=== PATIENT | female | born 1940 | race Caucasian/White ===

== ENCOUNTER → 2017-03-22 | Outpatient (CLI) | payer MEDICARE, BC ==
[2017-03-22 14:50] LABS: BASO # 0.1 x10^3/uL (0.0-0.2); BASO % 1 % (0-3); EOS # 0.2 x10^3/uL (0.0-0.7); EOS % 3 % (0-3); HEMATOCRIT 24.6 % (36.0-47.0); HEMOGLOBIN 7.7 g/dL (12.0-15.5); LYMPH # 1.5 x10^3/uL (1.0-4.8); LYMPH % 20 % (24-48); MEAN CORPUSCULAR HEMOGLOBIN 25 pg (25-35); MEAN CORPUSCULAR HGB CONC 31 g/dL (31-37); MEAN CORPUSCULAR VOLUME 78 fL (79-100); MONO # 0.8 x10^3/uL (0.0-1.1); MONO % 10 % (0-9); NEUT # 4.9 x10^3uL (1.8-7.7); NEUT % 66 % (31-73); PLATELET COUNT 396 x10^3/uL (140-400); RED BLOOD COUNT 3.16 x10^6/uL (3.50-5.40); RED CELL DISTRIBUTION WIDTH 15.5 % (11.5-14.5); WHITE BLOOD COUNT 7.5 x10^3/uL (4.0-11.0)
[2017-03-22 15:07] LABS: ALBUMIN 3.4 g/dL (3.4-5.0); ALBUMIN/GLOBULIN RATIO 0.9 (1.0-1.7); CALCIUM 9.3 mg/dL (8.5-10.1); CREATININE 1.1 mg/dL (0.6-1.0); POTASSIUM 3.9 mmol/L (3.5-5.1); TOTAL BILIRUBIN 0.2 mg/dL (0.2-1.0)
== END | disposition home or self-care (01) ==
LOC: LAB 14:01
PROVIDERS: ATTEND Family Medicine
DX: I50.21 Acute systolic (congestive) heart failure (principal); R06.09 Other forms of dyspnea
CPT/HCPCS: 36415; 80053; 82553; 83880; 84484; 85027; 85379

== ENCOUNTER 2019-10-18 09:08 | Inpatient (IN) | payer MEDICARE, BC ==
[~2019-10-18] VITALS: Ht 167.6 cm; Wt 88.5 kg
[2019-10-18 09:47] VITALS: BP 149/78
[2019-10-18 09:57] LABS: BASO % 0 % (0-3); EOS % 1 % (0-3); HEMATOCRIT 43.4 % (36.0-47.0); HEMOGLOBIN 14.5 g/dL (12.0-15.5); LYMPH # 0.9 x10^3/uL (1.0-4.8); LYMPH % 18 % (24-48); MEAN CORPUSCULAR HEMOGLOBIN 33 pg (25-35); MEAN CORPUSCULAR HGB CONC 33 g/dL (31-37); MEAN CORPUSCULAR VOLUME 98 fL (79-100); MONO # 0.5 x10^3/uL (0.0-1.1); MONO % 8 % (0-9); NEUT % 73 % (31-73); PLATELET COUNT 247 x10^3/uL (140-400); RED BLOOD COUNT 4.44 x10^6/uL (3.50-5.40); RED CELL DISTRIBUTION WIDTH 12.7 % (11.5-14.5); WHITE BLOOD COUNT 5.4 x10^3/uL (4.0-11.0)
[2019-10-18 10:07] LABS: ALBUMIN 3.3 g/dL (3.4-5.0); ALBUMIN/GLOBULIN RATIO 0.9 (1.0-1.7); CALCIUM 8.7 mg/dL (8.5-10.1); CREATININE 0.9 mg/dL (0.6-1.0); GFR 60.1; POTASSIUM 3.5 mmol/L (3.5-5.1); TOTAL BILIRUBIN 0.6 mg/dL (0.2-1.0); TOTAL PROTEIN 6.9 g/dL (6.4-8.2)
--- NOTE | 2019-10-18 10:37 | NUR ---
Pt arrived from Dr. Maradiaga's office via wheelchair for freqent falls, pt admitted to 1 [facility] room 109. Pt family at bedside, vital signs stable upon arrival. Non-skid socks applied, bed in lowest position, pt oriented to floor, walker provided for ambulation. Willl continue to assess and perform 's orders as prescribed. Pt currently off floor for spinal CT Scan.
[2019-10-18] MEDS ORDERED: fentaNYL 12MCG/HR 1 PATCH PATCH TD SCH (11:30)
[2019-10-18] MEDS ORDERED: LIDO700A21 TP (12:15)
[2019-10-18] MEDS ORDERED: MAGN400O7 PO (12:15)
[2019-10-18] MEDS ORDERED: LOPE2TAB27 PO (12:15)
[2019-10-18] MEDS ORDERED: ANAS1TAB47 PO (12:15)
[2019-10-18] MEDS ORDERED: LORA10CA PO (12:15)
[2019-10-18] MEDS ORDERED: CALC1TAB21 PO (12:15)
[2019-10-18] MEDS ORDERED: DEXT118L3 PO (12:15)
[2019-10-18] MEDS ORDERED: ACET500T68 PO (12:15)
[2019-10-18] MEDS ORDERED: OMEP20CA16 PO (12:15)
[2019-10-18] MEDS ORDERED: MEMA10TA PO (12:15)
[2019-10-18] MEDS ORDERED: GUAI-305 PO (12:15)
[2019-10-18] MEDS ORDERED: PROM5SYR2 PO (12:15)
[2019-10-18] MEDS ORDERED: METO25TA4 PO (12:15)
[2019-10-18] MEDS ORDERED: FURO40TA4 PO (12:15)
[2019-10-18] MEDS ORDERED: AMLO5TAB4 PO (12:15)
[2019-10-18] MEDS ORDERED: LORA-254 PO (12:15)
[2019-10-18] MEDS ORDERED: IRON1TAB29 PO (12:15)
[2019-10-18] MEDS ORDERED: ACETAMINOPHEN 500 MG TABLET PO PRN (13:45)
[2019-10-18 14:07] VITALS: BP 126/73
--- NOTE | 2019-10-18 14:43 | RAD ---
Two-view right foot study Clinical indications: Right foot pain FINDINGS: No acute fracture or dislocation or lytic process is evident. Old healed fracture of the midshaft of the second metatarsal bone is seen. Moderate-sized plantar spur of the calcaneus is seen. IMPRESSION: No acute fracture. Electronically signed by: Guido Sanders MD (10/18/2019 2:40 PM) [facility]
[2019-10-18] MEDS ORDERED: CONTRAST GIVEN MC PRN (15:00)
[2019-10-18] MEDS ORDERED: IOHEXOL 350 MG/ML 100 ML VIAL. IV ONE (15:00)
--- NOTE | 2019-10-18 15:05 | RAD ---
CT study of the lumbar spine without contrast Clinical indications: Severe intractable back pain. TECHNIQUE: Noncontrast helical CT scanning of the lumbar spine was performed. Multiplanar 2-D reconstructions were generated. PQRS compliance Statement One or more of the following individualized dose reduction techniques were utilized for this study: 1. Automated exposure control 2. Adjustment of the mA and/or kV according to patient size 3. Use of iterative reconstruction technique COMPARISON: Radiographic study lumbar spine dated July 24, 2007. FINDINGS: There is a severe compression fracture of L1. There is cortical disruption of the anterior aspect of the superior and inferior endplates and therefore this may be recent. This was not seen radiographically on the previous study. There is posterior protrusion of bony elements into the anterior spinal canal from the posterior superior aspect of the L1 vertebral body. This narrows the AP dimension of the spinal canal within the midline down to 10 mm. This is more prominent on the right side of the spinal canal. No lytic process or discitis is evident. Dextroscoliosis of is seen. The transverse processes are intact. 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 This entire process combining the Tarlov cyst with the dural ectasia measures 5.9 cm transversely and 3.6 cm in AP dimension and 6.5 cm in vertical dimension. There is a grade 1 anterolisthesis of L4-5 and L5-S1. No spondylolysis is seen. There is [id number] spinal canal stenosis at L1-2 and L2-3 and L3-4. There is moderate spinal canal stenosis at L4-5. There is neural foraminal narrowing at L3-4 bilaterally and at L4-5 on the right side. IMPRESSION: Severe compression fracture of L1 which may be recent. See discussion above for additional findings. Electronically signed by: Guido Sanders MD (10/18/2019 3:02 PM) [facility]
--- NOTE | 2019-10-18 16:10 | RAD ---
CT ANGIOGRAPHY CHEST History: Severe back pain. Syncope. Elevated d-dimer. Technique: CT of the chest was performed with contrast. PE protocol. Maximum intensity projection coronal and sagittal reconstructions were performed. Exposure: One or more of the following individualized dose reduction techniques were utilized for this examination: 1. Automated exposure control 2. Adjustment of the mA and/or kV according to patient size 3. Use of iterative reconstruction technique. Comparison: CT lumbar spine October 18, 2019. Findings: Chest: No evidence of pulmonary embolism. No evidence aortic aneurysm or dissection. Coronary artery calcification. No consolidation or pleural effusion. Right posterior lower lobe pleural nodules (image #43) measure 5 mm. 2 mm right upper lobe pulmonary nodule along the fissure (image 22). Right upper lobe anterior calcified granuloma. Left mid thyroid nodule measures 9 mm. Upper abdomen: Large hiatal hernia. Small left superior hepatic lobe hypodensity measures 5 mm (series 3 image #78), too small to further characterize. Bones: Chronic left posterior and anterior rib fractures. T10 and T11 compression fractures with vertebroplasty material. L1 severe compression fracture with mild retropulsion. Impression: 1. No evidence of pulmonary embolism. 2. L1 compression fracture. See dedicated CT lumbar spine for further details. 3. Large hiatal hernia. 4. Pulmonary nodules. Recommend comparison with prior imaging studies. If prior imaging studies are not available recommend one-year follow-up if high risk. 5. Left thyroid nodule. Electronically signed by: Nishant Roche DO (10/18/2019 4:07 PM) [facility]
[2019-10-18 19:15] VITALS: BP 116/75
[2019-10-18] MEDS ORDERED: LORA0.5T96 PO (21:05)
[2019-10-18] MEDS ORDERED: MULT-658 PO (21:32)
[2019-10-18] MEDS ORDERED: GUAI-447 PO (21:32)
[2019-10-18] MEDS ORDERED: ESOM20CA PO (21:32)
--- NOTE | 2019-10-18 22:00 | NUR ---
PT'S RESHMA PROVIDED MOST CURRENT HOME MED LIST, COPY PLACED IN CHART AND MEDS UPDATED IN EMAR.
[2019-10-18] MEDS: ACETAMINOPHEN 500 MG TABLET PO SCH (22:26)
[2019-10-18] MEDS: METOPROLOL TART IMMED RELEASE 25 MG TABLET PO SCH (22:27)
[2019-10-18 22:57] VITALS: BP 154/81
[2019-10-18] MEDS: traMADol 50 MG TABLET PO PRN (23:39)
[2019-10-19] MEDS ORDERED: guaiFENesin DM 200MG/20MG 10 ML SYRUP PO PRN (01:30)
[2019-10-19] MEDS ORDERED: CETIRIZINE HCL 10 MG TABLET PO PRN (01:30)
[2019-10-19 05:17] VITALS: BP 157/77
[2019-10-19] MEDS ORDERED: ACETAMINOPHEN 500 MG TABLET PO SCH (06:00)
[2019-10-19] MEDS ORDERED: PANTOPRAZOLE 40 MG TABLET. PO SCH (07:30)
[2019-10-19] MEDS: ACETAMINOPHEN 500 MG TABLET PO SCH (08:45)
[2019-10-19] MEDS: METOPROLOL TART IMMED RELEASE 25 MG TABLET PO SCH (08:46)
[2019-10-19] MEDS ORDERED: LIDOCAINE (700MG/PATCH) PATCH. TP SCH (09:00)
[2019-10-19] MEDS ORDERED: METOPROLOL TART IMMED RELEASE 25 MG TABLET PO SCH (09:00)
[2019-10-19] MEDS ORDERED: MULTIVITAMIN with MINERAL TABLET. PO SCH (09:00)
[2019-10-19] MEDS ORDERED: FUROSEMIDE 40 MG TABLET PO SCH (09:00)
[2019-10-19] MEDS ORDERED: amLODIPine BESYLATE 5 MG TABLET PO SCH (09:00)
[2019-10-19] MEDS ORDERED: ANASTROZOLE 1 MG TABLET PO SCH (09:00)
[2019-10-19] MEDS ORDERED: MEMANTINE 10 MG TABLET. PO SCH (09:00)
--- NOTE | 2019-10-19 10:25 | NUR ---
Pt to be transferred to [facility] for compression fracture of L1 located in lumbar spine. RN educated pt about reasoning for transfer, at bedside. Will continue to monitor and assess as needed.
[2019-10-19 10:35] VITALS: BP 106/58
[2019-10-19] MEDS: traMADol 50 MG TABLET PO PRN (10:38)
[2019-10-19 10:50] VITALS: BP 106/58
--- NOTE | 2019-10-19 11:44 | NUR ---
Discharge Note: CHRIS VIGIL [facility] Discharge instructions and discharge home medications reviewed with Patient and a copy given. All questions have been answered and understanding verbalized. The following instructions and handouts were given: Report to [facility] Room 404 Discontinued lines and drains: IV left in for transfer to [facility] Patient transferred to [facility]]
[2019-10-19] MEDS ORDERED: PATCH REMOVAL. MC SCH (21:00)
--- NOTE | 2019-11-01 20:59 | DS ---
DATE OF DISCHARGE: 10/19/2019 HOSPITAL COURSE: An 79-year-old female who came in. The patient notes that the patient has been falling several times. The patient has been having problems with maintaining . The patient otherwise has been having severe back pain and had a problem with severe lumbar sacral problems. The patient in turn was in such excruciating amount of pain and as a result of this, the patient was admitted to the hospital for further evaluation. On exam, the patient was noted to have a problem with severe compression fracture of L1, probably recent. The patient has dementia, Alzheimer type, but certainly was able to dictate the fact of where her pain was located. The x-rays were as noted showing severe compression fracture. The patient's pain was 9/10 and as a result of this, the patient was thought favorable to be transferred down to [place] for possible vertebroplasty and make further evaluation. The patient otherwise was stabilized with pain medications. Her pain was a 9-10/10. She was unable to move because of the severity of the pain itself. The patient's lab work was basically unremarkable in terms of sodium, potassium, electrolytes. She had some mild protein malnutrition at best. In any case, the patient was transferred down to the [facility] for further evaluation of her situation with her vertebral compression fracture. IMPRESSION: Severe vertebral compression fracture of L1, multiple falls, dementia, Alzheimer type, moderate protein malnutrition, history of multiple falls at home, multiple contusions to her foot and other areas of her body. PLAN: The patient will be on regular diet and transferred via EMS down to the [facility]. MARJAN VARELA MD DR: NELLY/wanda JOB#: [id number] / [id number]
== END 2019-10-19 12:00 | disposition short-term general hospital (02) | DRG 543 ==
LOC: 1 SOUTH 09:08
PROVIDERS: ADMIT Family Medicine; ATTEND Family Medicine
DX: M80.88XA Other osteoporosis with current pathological fracture, vertebra(e), initial encounter for fracture (principal); E44.0 Moderate protein-calorie malnutrition; M51.26 Other intervertebral disc displacement, lumbar region; I10 Essential (primary) hypertension; K21.9 Gastro-esophageal reflux disease without esophagitis; Z85.3 Personal history of malignant neoplasm of breast; Z91.018 Allergy to other foods; Z88.8 Allergy status to other drugs, medicaments and biological substances; Z87.891 Personal history of nicotine dependence; Z98.42 Cataract extraction status, left eye; Z98.41 Cataract extraction status, right eye; Z83.3 Family history of diabetes mellitus; Z82.49 Family history of ischemic heart disease and other diseases of the circulatory system; G30.9 Alzheimer's disease, unspecified; F02.80 Dementia in other diseases classified elsewhere, unspecified severity, without behavioral disturbance, psychotic disturbance, mood disturbance, and anxiety; Z91.81 History of falling
CPT/HCPCS: 36415; 71275; 72131; 73620; 80053; 82306; 82947; 84443; 85025; 85379; Q9967

== ENCOUNTER 2021-06-28 11:23 | Inpatient (IN) | payer MEDICARE, BC ==
[~2021-06-28] VITALS: Ht 167.6 cm; Wt 93.0 kg
[~2021-06-28 11:23] MED LIST: ACET500T68 PO; AMLO5TAB4 PO; ANAS1TAB47 PO; CALC1TAB21 PO; DEXT118L3 PO; ESOM20CA PO; FURO40TA4 PO; GUAI-305 PO; GUAI-447 PO; IRON1TAB29 PO; LIDO700A21 TP; LOPE2TAB27 PO; LORA-254 PO; LORA0.5T21 PO; LORA10CA PO; MAGN400O7 PO; MEMA10TA PO; METO25TA4 PO; MULT-658 PO; OMEP20CA16 PO; PROM5SYR2 PO
--- NOTE | 2021-06-28 11:37 | PHYS DOC ---
General Adult EDM: Chief Complaint: ALTERED MENTAL STATUS HPI: HPI: Patient is a 80-year-old female brought in by EMS from home. Patient has a history of Alzheimer's dementia and history mostly provided by patient's . He states that she usually is able to ambulate and speak with him although she is confused. This morning he states he was going to get the medications ready when she called him into the room and said that she felt "dizzy" and was dry heaving. Patient has been gave her a dose of Zofran which improved her symptoms. He called their primary care provider who had told him to come into the office, patient's states he was unable to get her up to walk because of her weakness. Has had both of her [place] Covid vaccines. No history of any lung problems, oxygen requirements, or sleep apnea. Patient has been states that she had a slight cough yesterday that resolved with Mucinex. Review of Systems: Review of Systems: All other systems within normal limits except for as noted in the HPI Allergies: Allergies: Allergies Coded Allergies Type Severity Reaction Last Updated Verified No Known Drug Allergies 10/18/19 No Physical Exam: PE: Constitutional: Well developed, well nourished, no acute distress, non-toxic appearance. [] HENT: Normocephalic, atraumatic, bilateral external ears normal, nose normal. [] Eyes: PERRLA, conjunctiva normal, no discharge. [] Neck: No rigidity, supple, no stridor. [] Cardiovascular: Regular rate and rhythm, brisk cap refill [] Lungs & Thorax: Non labored symmetric respirations, no tachypnea or respiratory distress [] Abdomen: Soft, nondistended. Skin: Warm, dry, no erythema, no rash. [] Back: Unremarkable Extremities: No deformities, range of motion grossly intact, no lower extremity edema [] Neurologic: Alert and oriented X 2, no focal deficits noted. [] Psychologic: Affect normal, judgement normal, mood normal. [] EKG: EKG: [] Radiology/Procedures: Radiology/Procedures: [address] [address] IMAGING REPORT Signed PATIENT: CHRIS VIGIL EACCOUNT: [id number] : 1940 LOCATION: ER AGE: 80 SEX: F EXAM STATUS: REG ER ORD. PHYSICIAN: FERNANDO ABERNATHY MD REASON: hypoxic PROCEDURE: CHEST AP ONLY EXAM: CHEST ONE VIEW. HISTORY: Hypoxia. COMPARISON: 10/18/2019. FINDINGS: A frontal view of the chest is obtained. There are minimal airspace opacities in both bases. There is a large hiatal hernia. There is no pneumothorax or pleural effusion. The heart is not enlarged. Vertebroplasty changes are noted at the thoracolumbar junction. There are atherosclerotic calcifications of the aorta. Calcified mediastinal lymph nodes are likely secondary to old granulomatous disease. IMPRESSION: 1. Mild bibasilar airspace opacities. Correlate for atypical pneumonia. 2. Large hiatal hernia. Electronically signed by: Adilene Berry MD (06/28/2021 11:49 AM) [id number] DICTATED AND SIGNED BY: ZAHRAA BERRY MD DATE: 06/28/21 1148 CC: FERNANDO ABERNATHY MD; MARJAN VARELA MD ~MTH0 0 [] Heart Score: C/O Chest Pain: No HEART Score for Chest Pain: HEART Score for Chest Pain Response (Comments) Value History Slighlty/Non-Suspicious 0 ECG Normal 0 Age > 65 2 Risk Factors 1 or 2 Risk Factors 1 Troponin < Normal Limit 0 Total 3 Risk Factors: Risk Factors: DM, Current or recent (<one month) smoker, HTN, HLP, family history of CAD, obesity. Risk Scores: Score 0 - 3: 2.5% MACE over next 6 weeks - Discharge Home Score 4 - 6: 20.3% MACE over next 6 weeks - Admit for Clinical Observation Score 7 - 10: 72.7% MACE over next 6 weeks - Early Invasive Strategies Course & Med Decision Making: Course & Med Decision Making Pertinent Labs and Imaging studies reviewed. (See chart for details) [] Dragon Disclaimer: Dragon Disclaimer: This electronic medical record was generated, in whole or in part, using a voice recognition dictation system. Departure Departure: Impression: Primary Impression: Pneumonia Disposition: ADMITTED INPATIENT Admitting Physician: Marjan Varela Condition: STABLE Referrals: MARJAN VARELA MD (PCP) FERNANDO ABERNATHY MD Jun 28, 2021 11:37
--- NOTE | 2021-06-28 11:41 | EKG ---
[address] [address] Test Date: 2021-06-28 Test Time: 11:25:32 Pat Name: CHRIS VIGIL Department: Room: Gender: F Value Advisor: EDWIN : 1940 Requested By: FERNANDO ABERNATHY Order Number: [id number] Reading MD: Measurements Intervals [place] Rate: 61 P: 23 SD: 204 QRS: 64 QRSD: 90 T: 53 QT: 422 QTc: 426 Interpretive Statements SINUS RHYTHM QRS(T) CONTOUR ABNORMALITY CONSIDER ANTEROSEPTAL MYOCARDIAL DAMAGE POSSIBLY ABNORMAL ECG RI6.02 No previous ECG available for comparison
--- NOTE | 2021-06-28 11:52 | RAD ---
EXAM: CHEST ONE VIEW. HISTORY: Hypoxia. COMPARISON: 10/18/2019. FINDINGS: A frontal view of the chest is obtained. There are minimal airspace opacities in both bases. There is a large hiatal hernia. There is no pneum othorax or pleural effusion. The heart is not enlarged. Vertebroplasty changes are noted at the thora columbar junction. There are atherosclerotic calcifications of the aorta. Calcified mediastinal lymph nodes are likely secondary to old granulomatous disease. IMPRESSION: 1. Mild bibasilar airspace opacities. Correlate for atypical pneumonia. 2. Large hiatal hernia. Electronically signed by: Adilene Berry MD (06/28/2021 11:49 AM) [id number]
[2021-06-28 12:00] LABS: BASO % 1 % (0-3); EOS # 0.1 x10^3/uL (0.0-0.7); EOS % 1 % (0-3); HEMATOCRIT 41.6 % (36.0-47.0); HEMOGLOBIN 13.9 g/dL (12.0-15.5); LYMPH # 0.9 x10^3/uL (1.0-4.8); LYMPH % 17 % (24-48); MEAN CORPUSCULAR HEMOGLOBIN 34 pg (25-35); MEAN CORPUSCULAR HGB CONC 33 g/dL (31-37); MEAN CORPUSCULAR VOLUME 103 fL (79-100); MONO # 0.4 x10^3/uL (0.0-1.1); MONO % 7 % (0-9); NEUT # 4.1 x10^3uL (1.8-7.7); NEUT % 74 % (31-73); PLATELET COUNT 205 x10^3/uL (140-400); RED BLOOD COUNT 4.05 x10^6/uL (3.50-5.40); RED CELL DISTRIBUTION WIDTH 12.5 % (11.5-14.5); WHITE BLOOD COUNT 5.6 x10^3/uL (4.0-11.0)
[2021-06-28 12:07] LABS: CALCIUM 8.5 mg/dL (8.5-10.1); CREATININE 0.8 mg/dL (0.6-1.0); GFR 68.7; POTASSIUM 3.9 mmol/L (3.5-5.1)
[2021-06-28 12:20] LABS: ALBUMIN 3.2 g/dL (3.4-5.0); ALBUMIN/GLOBULIN RATIO 0.9 (1.0-1.7); TOTAL BILIRUBIN 0.3 mg/dL (0.2-1.0); TOTAL PROTEIN 6.6 g/dL (6.4-8.2)
[2021-06-28] MEDS ORDERED: ACETAMINOPHEN 325 MG TABLET PO PRN (13:30)
[2021-06-28] MEDS ORDERED: AZITHROMYCIN 500 MG in IV NORMAL SALINE 250ML 250 ML IV ONE ×2 (13:30→15:15)
[2021-06-28] MEDS ORDERED: ONDANSETRON PF 4 MG/2 ML VIAL. IVP PRN (13:30)
[2021-06-28] MEDS ORDERED: DEXAMETHASONE SOD PHOS 10 MG/ML VIAL. IV ONE ×2 (13:30→15:15)
[2021-06-28 15:10] VITALS: BP 111/60
[2021-06-28] MEDS ORDERED: MEMA10TA PO (16:18)
[2021-06-28] MEDS ORDERED: DOCU-109 PO (16:18)
[2021-06-28] MEDS ORDERED: [UNRECOGNIZED DRUG - CODE] PO (16:18)
[2021-06-28] MEDS ORDERED: TRAM50TA PO (16:18)
[2021-06-28] MEDS ORDERED: CALC600T60 PO (16:18)
[2021-06-28] MEDS ORDERED: guaiFENesin DM 200MG/20MG 10 ML SYRUP PO PRN (16:45)
[2021-06-28] MEDS: LORazepam 0.5 MG TABLET PO PRN (17:49)
[2021-06-28] MEDS: ACETAMINOPHEN 500 MG TABLET PO SCH (17:49)
[2021-06-28 19:00] VITALS: BP_SYST 97; BP_SYST 99; BP_DIAS 60; BP_DIAS 70
[2021-06-28] MEDS: ENOXAPARIN 40 MG/0.4 ML SYRINGE. SQ SCH (19:25)
--- NOTE | 2021-06-28 19:36 | HP ---
ADMIT DATE: 06/28/2021 HISTORY OF PRESENT ILLNESS: An 80-year-old female with history of Alzheimer's came in with atypical pneumonia, difficulty breathing, shortness of breath. The patient lives at home with her . Finally, he said she was so weak, they could not get her out of bed. She felt dizzy, lightheaded and unable to move. She became increasingly weak. She was brought in by EMS to the emergency room. She has had Moderna COVID vaccinations. She had a slight cough yesterday. She was admitted for pneumonia. PAST MEDICAL HISTORY: Alzheimer disease, cataracts, glaucoma, cardiac catheterization, GERD, incontinence, back pain. Immunizations for tetanus and Moderna vaccines. ALLERGIES: ALLERGY TO SULFUR. FAMILY HISTORY: Noncontributory, unobtainable. MEDICATIONS: At home include that of loratadine, ferrous sulfate, metoprolol, tramadol, Namenda 20, calcium, furosemide 40, guaifenesin, docusate sodium, lidocaine patch and multivitamins. SOCIAL HISTORY: No smoking, alcohol or drug use. Full code. REVIEW OF SYSTEMS: The patient denies any headaches, visual change, blurred vision, double vision and otherwise, unable to give much of a history because of her dementia. PHYSICAL EXAMINATION: GENERAL: Pleasant white female, very pleasant lady, very weak tender and much more sedate than usual. VITAL SIGNS: Blood pressure 137/77, respiratory rate 16, pulse 74, afebrile, 88% oxygen saturation. HEENT: The patient's head was atraumatic, normocephalic. Eyes: PERRLA without jaundice. The mouth and throat were normal. NECK: Supple, without thyromegaly. LUNGS: Diminished, poor movement of air in the bases. CARDIOVASCULAR: Regular sinus rhythm, S1, S2, without murmur, rub, thrill, or extra heart sounds. ABDOMEN: Soft, nontender, no rebound or guarding. Positive bowel sounds, no hepatosplenomegaly, no bruits noted. EXTREMITIES: No clubbing, cyanosis, nor edema. NEUROLOGIC: The patient was alert and somewhat oriented, but definitely has short-term memory problems and mental issues in terms of her memory. Otherwise, very pleasant individual, very cooperative. LABORATORY DATA: The patient's labs demonstrated a white count of 5, hemoglobin 13, hematocrit 41, MCV of 103. The patient's chemistry 141, 3.9, BUN and creatinine of 17 and 0.8, blood sugar 153, albumin 3.2. The patient's blood gases were a venous stick and were insignificant. D-dimer 0.35. The patient was admitted for further evaluation. IMPRESSION: Pneumonia and that of acute respiratory failure, Alzheimer disease. The patient to continue on IV antibiotic therapy, aggressive pulmonary toilet and make further evaluation on her as indicated. SENIA DR: Josette TID: [id number]
[2021-06-28 23:00] VITALS: BP 127/65
[2021-06-29 03:00] VITALS: BP 125/64
[2021-06-29] MEDS: ACETAMINOPHEN 500 MG TABLET PO SCH ×4 (06:10→18:05)
[2021-06-29 06:49] LABS: BASO % 0 % (0-3); EOS % 0 % (0-3); HEMATOCRIT 40.9 % (36.0-47.0); HEMOGLOBIN 13.8 g/dL (12.0-15.5); LYMPH # 0.7 x10^3/uL (1.0-4.8); LYMPH % 12 % (24-48); MEAN CORPUSCULAR HEMOGLOBIN 35 pg (25-35); MEAN CORPUSCULAR HGB CONC 34 g/dL (31-37); MEAN CORPUSCULAR VOLUME 103 fL (79-100); MONO # 0.1 x10^3/uL (0.0-1.1); MONO % 2 % (0-9); NEUT # 5.2 x10^3uL (1.8-7.7); NEUT % 86 % (31-73); PLATELET COUNT 202 x10^3/uL (140-400); RED BLOOD COUNT 3.98 x10^6/uL (3.50-5.40); RED CELL DISTRIBUTION WIDTH 12.4 % (11.5-14.5); WHITE BLOOD COUNT 6.1 x10^3/uL (4.0-11.0)
[2021-06-29 07:00] LABS: CALCIUM 8.6 mg/dL (8.5-10.1); GFR 53.1; POTASSIUM 4.2 mmol/L (3.5-5.1)
[2021-06-29] MEDS: DOCUSATE SODIUM 100 MG CAPSULE PO SCH (08:56)
[2021-06-29] MEDS: MULTIVITAMIN I-VITE TABLET. PO SCH (08:56)
[2021-06-29] MEDS: MEMANTINE 10 MG TABLET. PO SCH (08:57)
[2021-06-29] MEDS: FUROSEMIDE 40 MG TABLET PO SCH (08:57)
[2021-06-29] MEDS: PANTOPRAZOLE 40 MG TABLET. PO SCH (08:57)
[2021-06-29] MEDS: AZITHROMYCIN 250 MG TABLET. PO SCH (08:57)
[2021-06-29] MEDS: LIDOCAINE (700MG/PATCH) PATCH. TP SCH (08:58)
[2021-06-29] MEDS ORDERED: FERROUS FUMARATE 27 MG PO SCH (09:00)
[2021-06-29 11:21] VITALS: BP 123/78
--- NOTE | 2021-06-29 12:46 | PN ---
SUBJECTIVE: An 80-year-old female admitted with pneumonia and respiratory distress. The patient is resting comfortably. She has marked Alzheimer's, not able to answer questions very thoroughly, but doing better overall. OBJECTIVE: VITAL SIGNS: Blood pressure 125/64, respirations 20, pulse 75, afebrile, 2 liters 96. GENERAL: The patient is alert, but slightly confused, does not know where she is at. LUNGS: Diminished but clear. CARDIOVASCULAR: Regular sinus rhythm. ABDOMEN: Soft, nontender. EXTREMITIES: No clubbing, cyanosis, nor edema. NEUROLOGIC: The patient is baseline in that regard. She continues on IV Rocephin and Zithromax. Seems to be making good progress along those lines. Otherwise, she is continued on her home medications for her dementia. LABORATORY DATA: The patient otherwise white count was 6 and hemoglobin and hematocrit of 13 and 40. We will go ahead and continue to monitor her accordingly. Cardiac enzymes were negative. IMPRESSION: Therefore, acute respiratory failure, atypical pneumonia, Alzheimer's disease. Continue with present drug regimen with IV antibiotic therapy and aggressive pulmonary toilet. CRESENCIO DR: Josette TID: [id number]
[2021-06-29 16:25] VITALS: BP 111/69
[2021-06-29] MEDS: ENOXAPARIN 40 MG/0.4 ML SYRINGE. SQ SCH (18:06)
[2021-06-29] MEDS: LORazepam 0.5 MG TABLET PO PRN (20:15)
[2021-06-29] MEDS: PATCH REMOVAL. MC SCH (21:00)
[2021-06-29 21:29] VITALS: BP 136/74
[2021-06-30 05:31] VITALS: BP 125/99
[2021-06-30] MEDS: ACETAMINOPHEN 500 MG TABLET PO SCH ×5 (06:13→23:55)
[2021-06-30] MEDS: AZITHROMYCIN 250 MG TABLET. PO SCH (07:50)
[2021-06-30] MEDS: DOCUSATE SODIUM 100 MG CAPSULE PO SCH (07:50)
[2021-06-30] MEDS: PANTOPRAZOLE 40 MG TABLET. PO SCH (07:51)
[2021-06-30] MEDS: LIDOCAINE (700MG/PATCH) PATCH. TP SCH (07:51)
[2021-06-30] MEDS: MEMANTINE 10 MG TABLET. PO SCH (07:51)
[2021-06-30] MEDS: MULTIVITAMIN I-VITE TABLET. PO SCH (07:51)
[2021-06-30] MEDS: FUROSEMIDE 40 MG TABLET PO SCH (08:05)
[2021-06-30 11:54] VITALS: BP 134/83
--- NOTE | 2021-06-30 12:47 | RAD ---
XR CHEST 2V History: Reason: pneumonia / Spl. Instructions: / History: Comparison: June 28, [address] October 18, 2019 Findings: Moderate hiatal hernia. Mild patchy bibasilar opacities, similar compared to prior. No pleural effusi on. Chronic thoracolumbar compression fractures with kyphoplasty is, unchanged. Prior granulomatous d isease within the chest. Glenohumeral DJD. Large calcified left intra-articular loose body, unchanged . Impression: 1. Mild patchy bibasilar opacities, likely atelectasis. 2. Moderate hiatal hernia. Electronically signed by: Nishant Roche DO (06/30/2021 12:45 PM) [facility]
[2021-06-30 16:30] VITALS: BP 128/72
[2021-06-30] MEDS: ENOXAPARIN 40 MG/0.4 ML SYRINGE. SQ SCH (18:06)
[2021-06-30] MEDS: LORazepam 0.5 MG TABLET PO PRN (19:32)
[2021-06-30] MEDS: HALOPERIDOL LACT 5 MG/ML VIAL. IVP PRN (19:32)
[2021-06-30] MEDS: traMADol 50 MG TABLET PO PRN (19:33)
[2021-06-30 20:06] VITALS: BP 131/81
[2021-06-30] MEDS: PATCH REMOVAL. MC SCH (21:00)
[2021-06-30] MEDS: LACTOBACILLUS RHAMNOSUS GG 1 CAPSULE. PO SCH (21:00)
[2021-06-30 23:57] VITALS: BP 122/69
--- NOTE | 2021-07-01 00:21 | PN ---
DATE: 06/30/2021 SUBJECTIVE: This is an 80-year-old female in with bilateral lobe pneumonia, possibly atypical. The patient is resting fairly comfortably, making fairly good progress SARS COVID-19. The patient has marked Alzheimer's, not able to answer many questions if at all, somewhat agitated. Given her Ativan __. OBJECTIVE: VITAL SIGNS: Blood pressure 120/72, respiration 18, pulse 100, afebrile, 94 on room air. GENERAL: I have discussed the situation with her . LUNGS: Diminished, coarse breath sounds. CARDIOVASCULAR: Regular sinus rhythm. ABDOMEN: Soft, protuberant. EXTREMITIES: No clubbing, cyanosis or edema. NEUROLOGIC: Intact. IMPRESSION: Bilateral lobe, atypical pneumonia, acute respiratory distress, severe Alzheimer disease. PLAN: Continue with IV antibiotic therapy and get suggestions from Psychiatry for her care of her agitation. ARIANNA DR: Josette TID: [id number]
[2021-07-01 05:28] VITALS: BP 152/87
[2021-07-01] MEDS: ACETAMINOPHEN 500 MG TABLET PO SCH ×3 (05:33→18:00)
[2021-07-01] MEDS: LIDOCAINE (700MG/PATCH) PATCH. TP SCH (09:00)
[2021-07-01] MEDS: FUROSEMIDE 40 MG TABLET PO SCH (10:14)
[2021-07-01] MEDS: MULTIVITAMIN I-VITE TABLET. PO SCH (10:14)
[2021-07-01] MEDS: PANTOPRAZOLE 40 MG TABLET. PO SCH (10:14)
[2021-07-01] MEDS: AZITHROMYCIN 250 MG TABLET. PO SCH (10:20)
[2021-07-01] MEDS: LACTOBACILLUS RHAMNOSUS GG 1 CAPSULE. PO SCH ×2 (10:20→20:19)
[2021-07-01] MEDS: MEMANTINE 10 MG TABLET. PO SCH (10:20)
[2021-07-01] MEDS: DOCUSATE SODIUM 100 MG CAPSULE PO SCH (10:20)
[2021-07-01 10:52] VITALS: BP 142/75
[2021-07-01] MEDS: CITALOPRAM 10 MG TABLET. PO SCH (12:44)
[2021-07-01 15:00] VITALS: BP 120/64
[2021-07-01] MEDS: ENOXAPARIN 40 MG/0.4 ML SYRINGE. SQ SCH (18:00)
[2021-07-01 18:10] VITALS: BP 136/71
[2021-07-01] MEDS: HALOPERIDOL LACT 5 MG/ML VIAL. IVP PRN (20:19)
[2021-07-01] MEDS: PATCH REMOVAL. MC SCH (21:00)
--- NOTE | 2021-07-01 23:51 | PN ---
DATE: 07/01/2021 SUBJECTIVE: An 80-year-old female in with pneumonia, community acquired. The patient has been having bouts of sundowners phenomenon with her Alzheimer's, which is fairly severe, although this morning, she seems to be doing somewhat better in her overall behavior, as she was somewhat agitated yesterday. The patient's family present had a long discussion with her and her son-in-law and described the element of sundowners along with the history of Alzheimer's, tried to make as possible with things in and around her. Her has been sitting with her. Yesterday, she is still running low-grade temperature of 99.7 with a pulse rate of 120, although this morning, blood pressure 142/70, respiratory rate 20, pulse 80, afebrile. The patient is alert, but disoriented, markedly confused, does follow simple commands, however, and is more relaxed this morning. notes that she is more usual self and she is indeed. She does answer some basic questions of how she is feeling, but other than that is unable to ascertain what else is going on around her. OBJECTIVE: GENERAL: She is alert. She is upright in her chair. LUNGS: Diminished, but clear. CARDIOVASCULAR: Stable. ABDOMEN: Soft, nontender. A repeat chest x-ray demonstrated mild patchy opacities, likely atelectasis. We would indicate hopefully that the pneumonia itself was clear, although she did run a low-grade temperature yesterday and she continues on antibiotic therapy of Rocephin and azithromycin for now. IMPRESSION: Acute respiratory failure, atypical pneumonia, Alzheimer's disease with sundown phenomenon, agitation, change in mental status. SARS negative, hyperglycemia, moderate protein malnutrition. PLAN: Continue present drug regimen. I have made plans to have home health. They requested [facility] to join up with the family when the patient has been dismissed. We will start her on Celexa for her sundown phenomenon, as it seems to be noted in the literature as being one of the better medications to try. HUNTER/LAMONT CORNELL: Josette TID: [id number]
[2021-07-01] MEDS: LORazepam 0.5 MG TABLET PO PRN (23:56)
[2021-07-01] MEDS: traMADol 50 MG TABLET PO PRN (23:56)
[2021-07-02] MEDS: ACETAMINOPHEN 500 MG TABLET PO SCH ×2 (06:30)
[2021-07-02 06:35] VITALS: BP 142/65
[2021-07-02] MEDS: FUROSEMIDE 40 MG TABLET PO SCH (09:26)
[2021-07-02] MEDS: MULTIVITAMIN I-VITE TABLET. PO SCH (09:27)
[2021-07-02] MEDS: CITALOPRAM 10 MG TABLET. PO SCH (09:27)
[2021-07-02] MEDS: LACTOBACILLUS RHAMNOSUS GG 1 CAPSULE. PO SCH (09:27)
[2021-07-02] MEDS: PANTOPRAZOLE 40 MG TABLET. PO SCH (09:27)
[2021-07-02] MEDS: AZITHROMYCIN 250 MG TABLET. PO SCH (09:27)
[2021-07-02] MEDS: MEMANTINE 10 MG TABLET. PO SCH (09:27)
[2021-07-02] MEDS: DOCUSATE SODIUM 100 MG CAPSULE PO SCH (09:28)
[2021-07-02] MEDS ORDERED: CITA10TA8 PO (09:48)
[2021-07-02] MEDS ORDERED: LORA0.5T21 PO ×2 (09:48→09:52)
[2021-07-02] MEDS ORDERED: AZIT250T6 PO (09:48)
[2021-07-02] MEDS ORDERED: CEFU250T59 PO (09:48)
--- NOTE | 2021-07-02 09:54 | DISCH ---
HOME HEALTH DISCHARGE/MEDS DISCHARGE INFORMATION: Discharge Date: Jul 02, 2021 Final Diagnosis: Problems Medical Problems: (1) Pneumonia Status: Acute Condition on Discharge: Stable CODE STATUS: Code Status: Full HOME HEALTH: Face to Face: I certify this patient is under my care and that I, or a nurse practitioner or physician's residential real estate assistant working with me, had a face to face encounter that meets the physician face to face encounter requirements with this patient on July 02, 2021. Medical Condition(s): Dementia, Pneumonia Long Term For: Assess Cardiopulm Status, Assess & Educate Safety, Assess/Skilled Observatio, Medication Management Speech Language Pathology For: Evaluation/Treatment POST DISCHARGE ORDERS: Activity Instructions for Disc: No restrictions Weight Bearing Status after Di: No restrictions DIET AFTER DISCHARGE: Regular CERTIFICATION STATEMENT: Certification Statement: Based on the above finding, I certify that this patient is confined to the home and needs intermittent chcf care, physical therapy and/or speech therapy, or continues to need occupational therapy.~ This patient is under my care, and I have initiated the establishment of the plan of care.~ This patient will be followed by myself or a community physician who will periodically review the plan of care. DISCHARGE MEDICATIONS: Home Meds Reported Medications Docusate Sodium (COLACE) 100 Mg Capsule, 100 MG PO DAILY for STOOL SOFTNER, CAP 06/28/21 Calcium Carbonate (CALCIUM) 600 Mg Tablet, 600 MG PO DAILY for SUPPL, TAB 06/28/21 Ferrous Fumarate (Ferretts) 325 Mg Tablet, 27 MG PO DAILY for ANEMIA, TAB 06/28/21 Tramadol Hcl (TRAMADOL HCL) 50 Mg Tablet, 50 MG PO PRN Q4HRS PRN for PAIN, TAB 06/28/21 Memantine Hcl (NAMENDA) 10 Mg Tablet, 20 MG PO DAILY for DEMENTIA, TAB 06/28/21 Guaifenesin/Dextromethorphan (ROBAFEN DM COUGH LIQUID) 118 Ml Liquid, 118 ML PO PRN PRN for COUGH, LIQUID 10/18/19 Esomeprazole Magnesium (NEXIUM CAPSULE) 20 Mg Capsule.dr, 20 MG PO DAILYAC for GERD, #30 CAP 0 Refills 10/18/19 Multivits-Min/Fa/Lycopene/Lut (CENTRUM SILVER TABLET) 1 Each Tablet, 1 EACH PO DAILY for supplement, TAB 10/18/19 Loratadine (CLARITIN) 10 Mg Capsule, 10 MG PO DAILY PRN for drainage, CAP 10/18/19 Acetaminophen (ACETAMINOPHEN) 500 Mg Tablet, 1000 MG PO Q6HRS for Pain 10/18/19 Lidocaine (Lidocaine PATCH ) 1 Each Adh..patch, 1 EACH TP DAILY for FOR LOCAL PAIN, PATCH REMOVE AFTER 12 HOURS 10/18/19 Furosemide (FUROSEMIDE) 40 Mg Tablet, 1 TAB PO DAILY for HTN 10/18/19 Metoprolol Tartrate (METOPROLOL TARTRATE) 25 Mg Tablet, 1 TAB PO BID for HTN 10/18/19 Discontinued Reported Medications Memantine Hcl (NAMENDA) 10 Mg Tablet, 20 MG PO DAILY for Anxiety, TAB 10/18/19 Amlodipine Besylate (NORVASC) 5 Mg Tablet, 1 TAB PO DAILY for HTN 10/18/19 Anastrozole (ARIMIDEX) 1 Mg Tablet, 1 TAB PO DAILY for breast Cancer 10/18/19 MARJAN VARELA MD Jul 02, 2021 09:54
--- NOTE | 2021-07-02 20:58 | DS ---
DATE OF DISCHARGE: 07/02/2021 HOSPITAL COURSE: An 80-year-old female who was brought in through the emergency room with increased shortness of breath. The patient evaluated there in the emergency room, was found to have an atypical pneumonia and respiratory distress and as a result of that, low oxygen saturation, she was brought into the office for further evaluation and treatment thereof. The patient in turn was placed on IV antibiotic therapy, aggressive pulmonary toilet. The patient has severe Alzheimer's disease. She began to experience some sundowners phenomena and as a result of this the patient was given some Ativan and later on had to be given Haldol because of her marked agitation and the like. However, that really helped the patient quite a bit. She made good progress overall and she was stable. At first, the family wanted to take her home. Her last blood pressure was 142/65, respirations 20, pulse 100. She was afebrile, 93% on room air. Her labs demonstrated a white count of 6, hemoglobin 13 and hematocrit 40, MCV of 103. The patient's sodium, potassium 143 and 4.2, BUN and creatinine of 19 and 1. Cardiac enzymes were negative. BNP of 329. Albumin low at 3.2. Blood sugars 150-186 and needed to be monitored carefully there. She was SARS negative. IMPRESSION: Atypical pneumonia, hypoxia, acute respiratory distress, type 2 diabetes, moderate protein malnutrition, severe Alzheimer's dementia, Alzheimer type sundown phenomena, megaloblastic anemia. DISCHARGE INSTRUCTIONS: The patient to be discharged on a diabetic diet, decreased activity and have her follow up accordingly as noted above. SAMANTHA DR: Josette TID: [id number]
== END 2021-07-02 11:16 | disposition home health service (06) | DRG 177 ==
LOC: ER 11:23 → 1 SOUTH 13:41
PROVIDERS: ADMIT Family Medicine; ATTEND Family Medicine
DX: J15.6 Pneumonia due to other Gram-negative bacteria (principal); J96.01 Acute respiratory failure with hypoxia; E44.0 Moderate protein-calorie malnutrition; J15.9 Unspecified bacterial pneumonia; G30.9 Alzheimer's disease, unspecified; F02.80 Dementia in other diseases classified elsewhere, unspecified severity, without behavioral disturbance, psychotic disturbance, mood disturbance, and anxiety; K21.9 Gastro-esophageal reflux disease without esophagitis; H40.9 Unspecified glaucoma; E11.65 Type 2 diabetes mellitus with hyperglycemia; D53.1 Other megaloblastic anemias, not elsewhere classified; Z88.2 Allergy status to sulfonamides; Z68.33 Body mass index [BMI] 33.0-33.9, adult; Z20.822 Contact with and (suspected) exposure to COVID-19
CPT/HCPCS: 36415; 71045; 71046; 80048; 80053; 82803; 83735; 83880; 84484; 85025; 85379; 85610; 93005; J0456; J0696; J1100; J1630; J1650; J2060; J7050; U0003; 97110; 97530; 99285-25

== ENCOUNTER 2021-07-03 09:23 | Observation (INO) | payer MEDICARE, BC ==
[~2021-07-03] VITALS: Ht 172.7 cm; Wt 96.1 kg
[~2021-07-03 09:23] MED LIST changes: +AZIT250T6 PO; +CALC600T60 PO; +CEFU250T59 PO; +CITA10TA8 PO; +DOCU-109 PO; +TRAM50TA PO; +[UNRECOGNIZED DRUG - CODE] PO
--- NOTE | 2021-07-03 09:39 | PHYS DOC ---
Past History Past Surgical History: Appendectomy, Hysterectomy Alcohol Use: None Adult General Chief Complaint Chief Complaint: ALTERED MENTAL STATUS HPI HPI Patient is a 80-year-old female presenting from EMS for altered mentation. Patient's past medical history is complex, she has underlying dementia and was recently admitted to our facility June 28 and discharged July 02 after staying for pneumonia treatment. 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 He reports patient has been more confused than usual and at times not as alert. He confirms patient was recently treated for atypical pneumonia and has past medical history of type 2 diabetes, moderate protein malnutrition, severe Alzheimer's dementia and megaloblastic anemia. Patient has no complaints on arrival and little history is obtainable due to underlying dementia Review of Systems Review of Systems Fourteen body systems of review of systems have been reviewed. See HPI for pertinent positives and negative responses, other vidal all other systems are negative, non-pertinent or non-contributory Allergies Allergies Allergies Coded Allergies Type Severity Reaction Last Updated Verified Sulfa (Sulfonamide Antibiotics) Allergy Unknown 06/28/21 Yes Physical Exam Physical Exam Constitutional: Well developed, well nourished, no acute distress, non-toxic appearance. HENT: Normocephalic, atraumatic, bilateral external ears normal, oropharynx moist, no oral exudates, nose normal. Eyes: PERRLA, EOMI, conjunctiva normal, no discharge. Neck: Normal range of motion, no tenderness, supple, no stridor. Cardiovascular: Heart rate regular, sinus rhythm, no murmurs rubs or gallops Lungs & Thorax: No overt respiratory distress but patient is mildly hypoxic on room air with minimal exertion, no accessory muscle usage, crackles present bilaterally Abdomen: Bowel sounds normal, soft, no tenderness, no masses, no pulsatile masses. Nonsurgical abdomen, no peritoneal signs Skin: Warm, dry, no erythema, no rash. Back: No tenderness, no CVA tenderness. Extremities: No tenderness, no cyanosis, no clubbing, ROM intact, no edema. Neurologic: Alert and oriented to person only which is patient's baseline, grossly normal motor & sensory function, no focal deficits noted. Psychologic: Normal affect and mood, poor memory Current Patient Data Vital Signs Vital Signs Date Time Temp Pulse Resp B/P (MAP) Pulse Ox O2 Delivery O2 Flow Rate FiO2 07/03/21 09:35 94 Nasal Cannula 4.0 07/03/21 09:30 98.4 148 153/99 EKG EKG EKG ordered [place] interpreted at 0954hrs. as sinus rhythm at 105 bpm, unremarkable intervals, left axis deviation, no acute ischemic findings, no STEMI Repeat EKG ordered and interpreted by myself at 1023 hours as sinus rhythm at 100 bpm, unremarkable intervals, no changes per above, no STEMI Radiology/Procedures Radiology/Procedures XR CHEST 1V History: Reason: tachycardia, shob / Spl. Instructions: / History: Comparison: June 30, 2021 Findings: Moderate hiatal hernia. Patchy bibasilar opacities. No pleural effusion. No pneumothorax. Prior granulomatous disease within the chest. Unchanged heart size. Glenohumeral DJD. Chronic lower thoracic upper lumbar compression f ractures status post kyphoplasty. Impression: 1. Patchy bibasilar opacities, may represent atelectasis or developing infiltra alessandro. If persistent clinical concern, recommend follow-up. 2. Moderate hiatal hernia. Electronically signed by: Nishant Roche DO (07/03/2021 10:12 AM) [email or web address] /////////////////// Heart Score C/O Chest Pain: No HEART Score for Chest Pain: HEART Score for Chest Pain Response (Comments) Value History Slighlty/Non-Suspicious 0 ECG Normal 0 Age > 65 2 Risk Factors >3 Risk Factors or Hx CAD 2 Troponin < Normal Limit 0 Total 4 Risk Factors: Risk Factors: DM, Current or recent (<one month) smoker, HTN, HLP, family history of CAD, obesity. Risk Scores: Risk Factors: DM, Current or recent (<one month) smoker, HTN, HLP, family h istory of CAD, obesity. Course & Med Decision Making Course & Med Decision Making Patient tachycardic and hypoxic on arrival. HPI limited due to underlying dementia, physical examination grossly nonconcerning Supplemental oxygen immediately administered on arrival that improved patient's O2 saturations and subsequent tachycardic state. Subsequent ER work-up obtained that was nonconcerning for any emergent or life-threatening process. With that said, patient was still requiring supplemental oxygen to keep saturations greater than 90%, this is unusual for her. Case was discussed with PCP who also serves as hospitalist, he discussed wanting to send patient home to rehab/fdc etc. but patient's deferred at last admission Ultimately, patient accepted under care of Dr. aVrela for continued inpatient medical management. amenable. All questions and concerns addressed prior to hospital admission. did confirm prior to admission that patient was full CODE STATUS Dragon Disclaimer Dragon Disclaimer This electronic medical record was generated, in whole or in part, using a voice recognition dictation system. Departure Departure: Impression: Primary Impression: Respiratory failure Additional Impression: Dementia Disposition: ADMITTED INPATIENT Admitting Physician: Marjan Varela Condition: STABLE Referrals: MARJAN VARELA MD (PCP) Problem Qualifiers EVERETT REVELES DO Jul 03, 2021 09:39
[2021-07-03 10:13] LABS: BASO % 0 % (0-3); EOS # 0.2 x10^3/uL (0.0-0.7); EOS % 4 % (0-3); HEMATOCRIT 41.1 % (36.0-47.0); HEMOGLOBIN 13.7 g/dL (12.0-15.5); LYMPH # 0.9 x10^3/uL (1.0-4.8); LYMPH % 16 % (24-48); MEAN CORPUSCULAR HEMOGLOBIN 34 pg (25-35); MEAN CORPUSCULAR HGB CONC 33 g/dL (31-37); MEAN CORPUSCULAR VOLUME 102 fL (79-100); MONO # 0.5 x10^3/uL (0.0-1.1); MONO % 9 % (0-9); NEUT # 4.2 x10^3uL (1.8-7.7); NEUT % 72 % (31-73); PLATELET COUNT 208 x10^3/uL (140-400); RED BLOOD COUNT 4.02 x10^6/uL (3.50-5.40); RED CELL DISTRIBUTION WIDTH 12.4 % (11.5-14.5); WHITE BLOOD COUNT 5.9 x10^3/uL (4.0-11.0)
--- NOTE | 2021-07-03 10:14 | RAD ---
XR CHEST 1V History: Reason: tachycardia, shob / Spl. Instructions: / History: Comparison: June 30, 2021 Findings: Moderate hiatal hernia. Patchy bibasilar opacities. No pleural effusion. No pneumothorax. Prior granu lomatous disease within the chest. Unchanged heart size. Glenohumeral DJD. Chronic lower thoracic upp er lumbar compression fractures status post kyphoplasty. Impression: 1. Patchy bibasilar opacities, may represent atelectasis or developing infiltrates. If persistent cl inical concern, recommend follow-up. 2. Moderate hiatal hernia. Electronically signed by: Nishant Roche DO (07/03/2021 10:12 AM) [id number]
[2021-07-03 10:23] LABS: CALCIUM 8.4 mg/dL (8.5-10.1); CREATININE 0.8 mg/dL (0.6-1.0); GFR 68.7; POTASSIUM 3.2 mmol/L (3.5-5.1)
[2021-07-03] MEDS ORDERED: IOHEXOL 350 MG/ML 100 ML VIAL. IV ONE (10:45)
--- NOTE | 2021-07-03 10:50 | EKG ---
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
--- NOTE | 2021-07-03 10:52 | EKG ---
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
[2021-07-03] MEDS ORDERED: IV NORMAL SALINE 1,000ML 1,000 ML IV ONE (11:30)
--- NOTE | 2021-07-03 11:43 | RAD ---
CT angiography of the chest 07/03/2021 10:40 AM Indication: Reason: shob, hypoxia : Technique: Multiple contiguous axial images were obtained through the chest after administration of i ntravenous iodinated contrast. Coronal, sagittal, and 3-D MIP reformations were created. Comparison: CTA chest October 18, 2019 Findings: Heart size is normal. No significant pericardial effusion is identified. No pathologically enlarged m ediastinal adenopathy is identified. Thoracic aorta is unremarkable in course and contour. Hypodense left thyroid nodule similar.. There are no filling defects within central pulmonary arteries or othe r evidence of acute pulmonary embolism. There is a large hiatal hernia containing the majority of the stomach. There is no pneumothorax or pleural effusion. Heterogenous attenuation of pulmonary parench yma noted possible mild air trapping. Atelectasis in the left lower lobe secondary to aforementioned hiatal hernia noted. Infiltrate is seen. Calcified granuloma in the right upper lobe is unchanged. Sc attered sub-5 mm pulmonary nodules are unchanged. Limited visualization of the upper abdomen demonstr ates no acute abnormality. Acute osseous changes. T10-11 levels noted. IMPRESSION: 1. No evidence of acute pulmonary embolism or other acute cardiopulmonary process 2. Mild heterogenous attenuation of lung parenchyma, similar to prior exam, likely air trapping 3. Similar appearance of left thyroid nodule 4. Scattered sub-[address] follow-up in one year recommended. 5. Large hiatal hernia with underlying atelectasis CT DOSING PQRS STATEMENT: One or more of the following individualized dose reduction techniques were utilized for this examinat ion: 1. Automated exposure control 2. Adjustment of the mA and/or kV according to patient size 3. Use of iterative reconstruction technique Electronically signed by: Kashmir Quintanilla MD (07/03/2021 11:41 AM) [id number]
[2021-07-03] MEDS ORDERED: POTASSIUM CHLORIDE 20 MEQ TABLET.ER. PO ONE ×2 (12:00)
[2021-07-03 13:21] LABS: BARBITURATES NEG (NEG); BENZODIAZEPINES NEG (NEG); CANNABINOIDS NEG (NEG); COCAINE NEG (NEG); METHADONE NEG (NEG); OPIATES NEG (NEG); PHENCYCLIDINE NEG (NEG)
[2021-07-03 13:23] LABS: AMPHETAMINE/METHAMPHETAMINE NEG (NEG)
[2021-07-03 16:50] VITALS: BP 138/66
[2021-07-03] MEDS ORDERED: traMADol 50 MG TABLET PO PRN (18:45)
[2021-07-03] MEDS ORDERED: LORazepam 0.5 MG TABLET PO PRN (18:45)
[2021-07-03] MEDS ORDERED: CETIRIZINE HCL 10 MG TABLET PO PRN (19:15)
[2021-07-03] MEDS ORDERED: guaiFENesin DM 200MG/20MG 10 ML SYRUP PO PRN (19:15)
[2021-07-03] MEDS ORDERED: PATCH REMOVAL. MC SCH (21:00)
[2021-07-03] MEDS: CEFDINIR 300 MG CAPSULE PO SCH (21:22)
[2021-07-03 21:52] VITALS: BP 150/86
[2021-07-03 23:34] VITALS: BP 157/82
[2021-07-04] MEDS: ACETAMINOPHEN 500 MG TABLET PO SCH ×3 (05:51→12:36)
[2021-07-04 06:06] VITALS: BP 144/78
[2021-07-04] MEDS ORDERED: PANTOPRAZOLE 40 MG TABLET. PO SCH (07:30)
[2021-07-04] MEDS: CEFDINIR 300 MG CAPSULE PO SCH (08:06)
[2021-07-04] MEDS ORDERED: AZITHROMYCIN 250 MG TABLET. PO SCH (09:00)
[2021-07-04] MEDS ORDERED: CITALOPRAM 10 MG TABLET. PO SCH (09:00)
[2021-07-04] MEDS ORDERED: LIDOCAINE (700MG/PATCH) PATCH. TP SCH (09:00)
[2021-07-04] MEDS ORDERED: DOCUSATE SODIUM 100 MG CAPSULE PO SCH (09:00)
[2021-07-04] MEDS ORDERED: FERROUS FUMARATE 27 MG PO SCH (09:00)
[2021-07-04] MEDS ORDERED: MEMANTINE 10 MG TABLET. PO SCH (09:00)
[2021-07-04] MEDS ORDERED: MULTIVITAMIN with MINERAL TABLET. PO SCH (09:00)
[2021-07-04 10:50] VITALS: BP 151/82
--- NOTE | 2021-07-04 11:07 | DISCH ---
DISCHARGE ORDERS DISCHARGE DATE: Jul 04, 2021 FINAL DIAGNOSIS pneumonia weakness Falls dementia shortness of breath CONDITION AT DISCHARGE: Stable Code Status: Full SNF STAY <30 DAYS: Yes HOSPICE: No HOSPICE EVALUATE & TREAT: No ADMIT TO LTAC: No POST DISCHARGE ORDERS: ACTIVITY ORDERS: Activity as tolerated WEIGHT BEARING STATUS: No restrictions DIET AFTER DISCHARGE: Regular OTHER ORDERS: Physical and Occupational Therapy to Evaluate DISCHARGE MEDICATIONS: Home Meds Active Scripts Lorazepam (ATIVAN ) 0.5 Mg Tablet, 0.5 MG PO PRN Q6HRS PRN for MILD-MOD ANXIETY / AGITATION, #30 TAB Prov:MARJAN VARELA MD 07/02/21 Cefuroxime Axetil (CEFUROXIME) 250 Mg Tablet, 1 TAB PO BID for infection for 7 Days, #14 TAB 0 Refills Prov:MARJAN VARELA MD 07/02/21 Citalopram Hydrobromide (CELEXA) 10 Mg Tablet, 10 MG PO DAILY for anxiety/depression, #30 TAB 5 Refills Prov:MARJAN VARELA MD 07/02/21 Azithromycin (AZITHROMYCIN TABLET) 250 Mg Tablet, 250 MG PO DAILY for infection, #3 TAB Prov:MARJAN VARELA MD 07/02/21 Reported Medications Docusate Sodium (COLACE) 100 Mg Capsule, 100 MG PO DAILY for STOOL SOFTNER, CAP 06/28/21 Ferrous Fumarate (Ferretts) 325 Mg Tablet, 27 MG PO DAILY for ANEMIA, TAB 06/28/21 Tramadol Hcl (TRAMADOL HCL) 50 Mg Tablet, 50 MG PO PRN Q4HRS PRN for PAIN, TAB 06/28/21 Memantine Hcl (NAMENDA) 10 Mg Tablet, 20 MG PO DAILY for DEMENTIA, TAB 06/28/21 Guaifenesin/Dextromethorphan (ROBAFEN DM COUGH LIQUID) 118 Ml Liquid, 118 ML PO PRN PRN for COUGH, LIQUID 10/18/19 Esomeprazole Magnesium (NEXIUM CAPSULE) 20 Mg Capsule.dr, 20 MG PO DAILYAC for GERD, #30 CAP 0 Refills 10/18/19 Multivits-Min/Fa/Lycopene/Lut (CENTRUM SILVER TABLET) 1 Each Tablet, 1 EACH PO DAILY for supplement, TAB 10/18/19 Loratadine (CLARITIN) 10 Mg Capsule, 10 MG PO DAILY PRN for drainage, CAP 10/18/19 Acetaminophen (ACETAMINOPHEN) 500 Mg Tablet, 1000 MG PO Q6HRS for Pain 10/18/19 Lidocaine (Lidocaine PATCH ) 1 Each Adh..patch, 1 EACH TP DAILY for FOR LOCAL PAIN, PATCH REMOVE AFTER 12 HOURS 10/18/19 Furosemide (FUROSEMIDE) 40 Mg Tablet, 1 TAB PO DAILY for HTN 10/18/19 Discontinued Reported Medications Calcium Carbonate (CALCIUM) 600 Mg Tablet, 600 MG PO DAILY for SUPPL, TAB 06/28/21 Metoprolol Tartrate (METOPROLOL TARTRATE) 25 Mg Tablet, 1 TAB PO BID for HTN 10/18/19 Memantine Hcl (NAMENDA) 10 Mg Tablet, 20 MG PO DAILY for Anxiety, TAB 10/18/19 Amlodipine Besylate (NORVASC) 5 Mg Tablet, 1 TAB PO DAILY for HTN 10/18/19 Anastrozole (ARIMIDEX) 1 Mg Tablet, 1 TAB PO DAILY for breast Cancer 10/18/19 MARJAN VARELA MD Jul 04, 2021 11:07
--- NOTE | 2021-07-04 12:26 | HP ---
HISTORY OF PRESENT ILLNESS: The patient is an 80-year-old female, recently discharged with pneumonia and the like. The patient is resting fairly comfortably; however, the patient was at home, she began to have a sinus tachycardia with a rate of approximately 140-150. The patient had a change in her mental status even more severe. The patient's pulse rate was 148. The family called 911. They took her to the Emergency Room and there Dr. Whyte treated the patient with IV fluids and some other medications to slow her heart rate down. Apparently with the fluids, it came down into range and the patient made good progress with that, but because of a rate of approximately 150 the patient was admitted for evaluation. Her EKG demonstrated some sinus tachycardia. In any case, she was admitted for observation and further evaluation of her sinus tachycardia. The patient's troponins were negative. Her lactic acid was elevated; at one time it came right back down to normal range. Blood sugars were stable. The rest of her labs were basically stable except for slightly low potassium of 3.2. BNP of 600. However, the CTA of the chest showed no evidence of pulmonary emboli, possible left thyroid nodule, otherwise unremarkable. The patient was admitted as noted for observation. PAST MEDICAL HISTORY: The patient presently still being treated for atypical pneumonia, cataracts, glaucoma, severe Alzheimer's. She has had angina, cardiac catheterization, GERD, incontinence. ALLERGIES: TETANUS TOXOID, ADVERSE REACTION TO SULFA. FAMILY HISTORY: Noncontributory. SOCIAL HISTORY: No smoking, alcohol or drug use. Lives at home with her . REVIEW OF SYSTEMS: Really not able to get much of a history from her. She has severe Alzheimer's. PHYSICAL EXAMINATION: VITAL SIGNS: The patient's blood pressure is 152/86, respiratory rate 20, pulse 148, afebrile. She was 88% on room air. She had to be placed on oxygen and be monitored with that. GENERAL: She is alert, baseline, confused. HEENT: Head was atraumatic, normocephalic. Eyes: PERRLA without jaundice. Mouth and throat normal. NECK: Supple. LUNGS: Basically clear. CARDIOVASCULAR: Regular sinus rhythm by the time we saw her. ABDOMEN: Soft, nontender, no rebound or guarding. Positive bowel sounds, no hepatosplenomegaly was noted. EXTREMITIES: No clubbing, cyanosis or edema. NEUROLOGIC: Alert, but confused and disoriented x 3. Labs were already discussed. IMPRESSION: Sinus tachycardia, rate of 148. Continue to monitor; it came down with some IV fluids and oxygen. Mild respiratory distress, atypical pneumonia, severe Alzheimer's disease. Continue to monitor the patient. Accordingly make further evaluation on her per those results and we will go from there. CRESENCIO DR: Josette TID: [id number]
== END 2021-07-04 14:20 | disposition short-term general hospital (02) ==
LOC: ER 09:23 → INTOOBSV 11:52 → 1 SOUTH 11:52
PROVIDERS: ADMIT Family Medicine; ATTEND Family Medicine
DX: F02.80 Dementia in other diseases classified elsewhere, unspecified severity, without behavioral disturbance, psychotic disturbance, mood disturbance, and anxiety (principal); G30.9 Alzheimer's disease, unspecified; R00.0 Tachycardia, unspecified; J96.90 Respiratory failure, unspecified, unspecified whether with hypoxia or hypercapnia; Z20.822 Contact with and (suspected) exposure to COVID-19; J18.9 Pneumonia, unspecified organism; K44.9 Diaphragmatic hernia without obstruction or gangrene; E11.9 Type 2 diabetes mellitus without complications; Z90.49 Acquired absence of other specified parts of digestive tract; Z90.710 Acquired absence of both cervix and uterus
CPT/HCPCS: 36415; 71045; 71275; 80048; 80307; 82803; 82947; 83605; 83735; 83880; 84484; 85025; 87040; 87426; 93005; 96360; 99285; G0378; J7030; Q9967; U0003; G0379